=== PATIENT | female | born 1960 | race African-American/Black ===

== ENCOUNTER 2018-01-07 15:27 | Outpatient (CLI) | payer MEDICARE | END 2018-01-07 15:28 | disposition home or self-care (01) | LOC: BICMAMMO 15:27 | PROVIDERS: ATTEND Family Medicine | DX: Z12.31 Encounter for screening mammogram for malignant neoplasm of breast (principal); Z80.3 Family history of malignant neoplasm of breast | CPT/HCPCS: 77063; 77067 ==

== ENCOUNTER 2021-01-18 07:51 | Outpatient (CLI) | payer MEDICARE | END 2021-01-18 07:52 | disposition home or self-care (01) | LOC: BICMAMMO 07:51 | PROVIDERS: ATTEND Family Medicine | DX: Z12.31 Encounter for screening mammogram for malignant neoplasm of breast (principal) | CPT/HCPCS: 77063; 77067 ==